=== PATIENT | male | born 1945 ===

== ENCOUNTER 2021-04-26 18:59 | Emergency (ER) | payer SELFPAY ==
[~2021-04-26] VITALS: Ht 177.8 cm; Wt 73.6 kg
--- NOTE | 2021-04-26 19:27 | NUR ---
THIS IS A 76M, BIB EMS FOR [facility] 3X'S IN 2DAYS, TODAY HOWEVER, PER FAMILY PT WAS WALKING IN PARKING LOT ,AND WAS WEARING HOME O2, PER FAMILY PT UNCONSCIOUS FOR A FEW MINS AND WAS INCON OF URINE. UPON ARRIVAL PT A/O4, INTERACTING WITH STAFF RESP EVEN UNLABORED. DYLAN YAN
[2021-04-26] MEDS ORDERED: SODIUM CHLORIDE FLUSH 10ML SYR IVF ONE (19:30)
[2021-04-26 19:40] LABS: BASOPHILS % (AUTO) 1 % (0-1); EOSINOPHILS % (AUTO) 3 % (1-7); LYMPHOCYTES % (AUTO) 14 % (22-44); MEAN CORPUSCULAR HEMOGLOBIN 33.4 pg (27.5-34.5); MEAN CORPUSCULAR HGB CONC 32.8 g/dL (33.2-36.2); MEAN PLATELET VOLUME 7.5 fL (7.4-10.4); MONOCYTES % (AUTO) 9 % (2-9); NEUTROPHILS % (AUTO) 72 % (42-75); PLATELET COUNT 274 x10^3/uL (130-400); RED BLOOD COUNT 3.08 x10^6/uL (4.38-5.82); RED CELL DISTRIBUTION WIDTH 13.1 % (9.4-14.8)
[2021-04-26 19:49] LABS: ALANINE AMINOTRANSFERASE 11 U/L (12-78); ALBUMIN 3.1 g/dL (3.4-5.0); ANION GAP 4 mmol/L (5-15); CALCIUM 8.3 mg/dL (8.5-10.1); CHLORIDE 107 mmol/L (98-107)
[2021-04-26 19:54] LABS: ALKALINE PHOSPHATASE 79 U/L (45-117); BILIRUBIN,TOTAL 0.2 mg/dL (0.2-1.0); TOTAL PROTEIN 6.9 g/dL (6.4-8.2); TROPONIN I < 0.015 ng/mL (0.000-0.045)
--- NOTE | 2021-04-26 20:03 | NUR ---
ORTHOSTATIC VS DONE AT THIS TIME PT BACK TO BED, NOW REPORTS L RIB PAIN ERP TO BE UPDATED
--- NOTE | 2021-04-26 20:15 | NUR ---
IVF STARTED, PT TO XRAY AT THIS TIME
[2021-04-26] MEDS ORDERED: ALBUTEROL (20:23)
[2021-04-26] MEDS ORDERED: TAMSULOSIN (20:23)
[2021-04-26] MEDS ORDERED: SERTRALINE PO (20:23)
[2021-04-26] MEDS ORDERED: AMITRIPTYLINE PO (20:23)
[2021-04-26] MEDS ORDERED: PRAZOSIN PO (20:23)
[2021-04-26] MEDS ORDERED: ZYRTEC (20:23)
[2021-04-26] MEDS ORDERED: SYMBICORT (20:23)
[2021-04-26] MEDS ORDERED: METOPROLOL PO (20:23)
[2021-04-26] MEDS ORDERED: SPIRIVA (20:23)
[2021-04-26] MEDS ORDERED: SODIUM CHLORIDE 0.9%, 500ML IVBOLUS ONE (20:30)
--- NOTE | 2021-04-26 20:38 | NUR ---
PT BACK FROM IMAGING AT THIS TIME
[2021-04-26 21:54] VITALS: BP 155/83
--- NOTE | 2021-04-26 21:56 | NUR ---
Patient/Caregiver given discharge instructions and they have confirmed that they understand the instructions. Patient ambulatory with steady gait. NAD, all questions answered appropriately, denies additional needs at this time. No personal belongings left in room after discharge.
== END 2021-04-26 21:59 | disposition home or self-care (01) ==
LOC: ED 19:15
DX: S22.32XA Fracture of one rib, left side, initial encounter for closed fracture (principal); S20.212A Contusion of left front wall of thorax, initial encounter; E86.0 Dehydration; R55 Syncope and collapse; X58.XXXA Exposure to other specified factors, initial encounter; Y93.89 Activity, other specified; Y92.89 Other specified places as the place of occurrence of the external cause; Y99.8 Other external cause status
CPT/HCPCS: 36415; 71101; 80053; 83735; 84484; 85025; 93005; 96360; 99285; J7040